=== PATIENT | male | born 2000 | race African-American/Black ===

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

== ENCOUNTER 2018-02-20 10:36 | Emergency (ER) | payer MEDICAID ==
[~2018-02-20] VITALS: Ht 182.9 cm; Wt 68.0 kg
[2018-02-20 10:41] VITALS: BP 107/56
== END 2018-02-20 12:05 | disposition left against medical advice (07) ==
LOC: ER 10:36 → EDBD 10:36 → ER 12:05
DX: G40.909 Epilepsy, unspecified, not intractable, without status epilepticus (principal); R42 Dizziness and giddiness; F17.210 Nicotine dependence, cigarettes, uncomplicated

== ENCOUNTER 2018-07-22 10:32 | Emergency (ER) | payer MEDICAID ==
[~2018-07-22] VITALS: Ht 177.8 cm; Wt 65.8 kg
[2018-07-22] MEDS ORDERED: LORazepam 2MG/ML-1ML VIAL ONE (10:36)
[2018-07-22] MEDS ORDERED: LORazepam 2MG/ML-1ML VIAL IV ONE (10:45)
[2018-07-22] MEDS ORDERED: SODIUM CHLORIDE 0.9% 1,000 ML IV ONE (10:57)
[2018-07-22] MEDS ORDERED: LEVETIRACETAM INJ 1,000 MG in D5W 5% 100 ML IV ONE (11:00)
[2018-07-22 11:03] LABS: Basophils # (auto) 0 uL; Basophils % (auto) 0.6 % (0.0-2.0); Eosinophils # (auto) 0.1 uL; Eosinophils % (auto) 1.1 % (0.0-7.0); Hematocrit 48.2 % (41.0-53.0); Hemoglobin 15.4 g/dL (13.5-17.5); Lymphocytes % (auto) 37.4 % (10.0-50.0); Mean Corpuscular Hemoglobin 28.4 pg (28.0-32.0); Mean Corpuscular Volume 88.9 fL (80.0-100.0); Monocytes # (auto) 0.7 uL; Neutrophils # (auto) 4.2 uL; Neutrophils % (auto) 51.9 % (37.0-80.0); Platelet Count (auto) 199 10^3/uL (140-450); Red Blood Cells 5.43 10^6/uL (4.5-5.90); Red Cell Distribution Width 13.9 % (11.8-14.3)
[2018-07-22 11:13] LABS: Urine Bacteria NONE SEEN /hpf (None Seen); Urine Blood TRACE /uL (Negative); Urine Mucus FEW (None Seen); Urine Specific Gravity 1.018 (1.001-1.035); Urine WBC <1 /hpf (0 - 3)
[2018-07-22 11:31] LABS: Alcohol, Urine < 3.0 mg/dL (0-5); Amphetamine Screen, Urine POSITIVE (NEGATIVE); Barbiturate Scree,Urine NEGATIVE (NEGATIVE); Benzodiazephine Screen, Urine POSITIVE (NEGATIVE); Cannabinoid Screen, Urine POSITIVE (NEGATIVE); Cocaine Screen, Urine NEGATIVE (NEGATIVE); Opiate Scree,Urine NEGATIVE (NEGATIVE); Phencyclidine Screen, Urine NEGATIVE (NEGATIVE)
[2018-07-22 11:35] LABS: Albumin 4.4 g/dL (3.4-5.0); BUN/Creatinine Ratio 7.1; Bilirubin, Total 0.2 mg/dL (0.2-1.0); Calcium 8.5 mg/dL (8.5-10.1); Total Protein 8.1 g/dL (6.4-8.2)
[2018-07-22 11:37] LABS: Potassium 4.3 mmol/L (3.5-5.1)
[2018-07-22] MEDS ORDERED: KETOROLAC TROMETH 30 MG/ML 1ML VIAL IV ONE (17:45)
[2018-07-22 23:50] VITALS: BP 137/84
== END 2018-07-22 22:52 | disposition home or self-care (01) ==
LOC: EDBD 10:32 → ER 10:32
DX: G40.909 Epilepsy, unspecified, not intractable, without status epilepticus (principal); F15.10 Other stimulant abuse, uncomplicated; F12.10 Cannabis abuse, uncomplicated; J32.9 Chronic sinusitis, unspecified; F17.210 Nicotine dependence, cigarettes, uncomplicated
CPT/HCPCS: 36415; 51702; 70450; 71045; 80053; 80185; 80307; 81001; 82962; 83735; 84443; 85025; 93005; 94761; 96374; 96375; 99285; J1885; J1953; J2060; J7030; J7060

== ENCOUNTER 2018-07-23 06:46 | Inpatient (IN) | payer MEDICAID, OTHER ==
[~2018-07-23] VITALS: Ht 167.6 cm; Wt 67.3 kg
[2018-07-23] MEDS ORDERED: SODIUM CHLORIDE 0.9% 1,000 ML IVB ONE (07:16)
[2018-07-23] MEDS ORDERED: LORazepam 2MG/ML-1ML VIAL IV ONE ×2 (07:30→08:15)
[2018-07-23] MEDS ORDERED: LEVETIRACETAM INJ 1,000 MG in D5W 5% 100 ML IV ONE (08:15)
[2018-07-23] MEDS ORDERED: PHENYTOIN IV DILANTIN 1,000 MG in SODIUM CHL 0.9% 250 ML IV ONE (08:15)
[2018-07-23 10:29] LABS: Alcohol, Urine < 3.0 mg/dL (0-5); Amphetamine Screen, Urine NEGATIVE (NEGATIVE); Barbiturate Scree,Urine NEGATIVE (NEGATIVE); Benzodiazephine Screen, Urine POSITIVE (NEGATIVE); Cannabinoid Screen, Urine POSITIVE (NEGATIVE); Cocaine Screen, Urine NEGATIVE (NEGATIVE); Opiate Scree,Urine NEGATIVE (NEGATIVE); Phencyclidine Screen, Urine NEGATIVE (NEGATIVE)
[2018-07-23] MEDS ORDERED: HALOPERIDOL LACTATE 5 MG/ML INJ VIAL ONE (13:03)
[2018-07-23] MEDS ORDERED: HALOPERIDOL LACTATE 5 MG/ML INJ VIAL IM ONE ×2 (13:15→23:45)
[2018-07-23] MEDS ORDERED: NITROGLYCERIN 0.4 MG SL TAB SL PRN (14:00)
[2018-07-23] MEDS ORDERED: MORPHINE SULF INJ 2 MG/ML SYRINGE 1ML IV PRN ×2 (14:00)
[2018-07-23] MEDS ORDERED: DEXTROSE (50%) 50ML SYRG IV PRN (14:00)
[2018-07-23] MEDS ORDERED: LORazepam 2MG/ML-1ML VIAL IV PRN (14:00)
[2018-07-23] MEDS ORDERED: ONDANSETRON HCL 4 MG/2 ML VIAL IV PRN (14:00)
[2018-07-23 14:16] LABS: Basophils # (auto) 0 uL; Basophils % (auto) 0.2 % (0.0-2.0); Eosinophils # (auto) 0 uL; Hematocrit 45.6 % (41.0-53.0); Lymphocytes # (auto) 1.8 uL; Lymphocytes % (auto) 12.5 % (10.0-50.0); Mean Corpuscular Volume 85.1 fL (80.0-100.0); Monocytes # (auto) 1.2 uL; Monocytes % (auto) 8.6 % (0.0-12.0); Neutrophils # (auto) 11.1 uL; Neutrophils % (auto) 78.7 % (37.0-80.0); Platelet Count (auto) 184 10^3/uL (140-450); Red Blood Cells 5.36 10^6/uL (4.5-5.90); Red Cell Distribution Width 13.5 % (11.8-14.3); White Blood Cell 14.2 10^3/uL (4.4-10.8)
[2018-07-23] MEDS: SODIUM CHLORIDE 0.9% 1,000 ML IV SCH ×2 (14:20→22:14)
[2018-07-23 14:31] LABS: Albumin 3.8 g/dL (3.4-5.0); BUN/Creatinine Ratio 6.7; Calcium 8.3 mg/dL (8.5-10.1); Potassium 3.7 mmol/L (3.5-5.1)
[2018-07-23 14:34] LABS: Bilirubin, Total 0.4 mg/dL (0.2-1.0); Total Protein 7.2 g/dL (6.4-8.2)
[2018-07-23] MEDS: ACCU-CHEK COMFORT CURVE STRIP VI SCH (18:42)
[2018-07-23] MEDS: InsuLIN REG 1unit/0.01ml Soln (100units/ml) SC SCH (18:42)
[2018-07-23] MEDS: SODIUM CHL 0.9% IV SCH (22:00)
[2018-07-23] MEDS: PHENYTOIN DILANTIN IV SCH (22:00)
[2018-07-23] MEDS: LEVETIRACETAM INJ 500 MG in D5W 5% 100 ML IV SCH (22:15)
[2018-07-23] MEDS ORDERED: LEVETIRACETAM 500 MG/5ML INJ IV ONE (23:32)
[2018-07-24] MEDS ORDERED: PHENYTOIN SODIUM 50 MG/ML 5ML INJ VIAL IV ONE (00:42)
[2018-07-24] MEDS: LORazepam 2MG/ML-1ML VIAL IV PRN ×2 (06:02→23:27)
[2018-07-24] MEDS: ACCU-CHEK COMFORT CURVE STRIP VI SCH ×4 (07:23→18:07)
[2018-07-24] MEDS: InsuLIN REG 1unit/0.01ml Soln (100units/ml) SC SCH ×4 (07:23→18:00)
[2018-07-24] MEDS: SODIUM CHLORIDE 0.9% 1,000 ML IV SCH ×2 (07:58→18:08)
[2018-07-24 08:30] VITALS: BP 148/75
[2018-07-24] MEDS: PHENYTOIN DILANTIN IV SCH (10:29)
[2018-07-24] MEDS: SODIUM CHL 0.9% IV SCH (10:29)
[2018-07-24 10:33] LABS: Basophils # (auto) 0 uL; Basophils % (auto) 0.4 % (0.0-2.0); Eosinophils # (auto) 0 uL; Eosinophils % (auto) 0.1 % (0.0-7.0); Hematocrit 46.9 % (41.0-53.0); Hemoglobin 15.4 g/dL (13.5-17.5); Lymphocytes # (auto) 1.7 uL; Lymphocytes % (auto) 16.8 % (10.0-50.0); Mean Corpuscular Hemoglobin 27.9 pg (28.0-32.0); Mean Corpuscular Hgb Conc. 32.8 g/dL (32.0-36.0); Mean Corpuscular Volume 85.2 fL (80.0-100.0); Monocytes % (auto) 10.3 % (0.0-12.0); Neutrophils # (auto) 7.4 uL; Neutrophils % (auto) 72.4 % (37.0-80.0); Nucleated Red Blood Cells % 0.1 %; Platelet Count (auto) 174 10^3/uL (140-450); Red Blood Cells 5.51 10^6/uL (4.5-5.90); Red Cell Distribution Width 13.7 % (11.8-14.3); White Blood Cell 10.2 10^3/uL (4.4-10.8)
[2018-07-24] MEDS: LEVETIRACETAM INJ 500 MG in D5W 5% 100 ML IV SCH (10:52)
[2018-07-24 11:02] LABS: Albumin 3.8 g/dL (3.4-5.0); BUN/Creatinine Ratio 8.2; Bilirubin, Total 0.4 mg/dL (0.2-1.0); Potassium 3.7 mmol/L (3.5-5.1); Total Protein 7.4 g/dL (6.4-8.2)
[2018-07-24 11:57] VITALS: BP 141/74
[2018-07-24] MEDS ORDERED: LEVETIRACETAM INJ 1,000 MG in D5W 5% 100 ML IV ONE (12:30)
[2018-07-24] MEDS ORDERED: LABETALOL HCL 5 MG/ML ML 20ML VIAL IV PRN (12:45)
[2018-07-24 15:50] VITALS: BP 122/75
[2018-07-24 19:50] VITALS: BP 112/56
[2018-07-24] MEDS: LEVETIRACETAM INJ 750 MG in D5W 5% 100 ML IV SCH (22:10)
[2018-07-25] MEDS: LORazepam 2MG/ML-1ML VIAL IV PRN (02:31)
[2018-07-25 04:00] VITALS: BP 116/55
[2018-07-25] MEDS: SODIUM CHLORIDE 0.9% 1,000 ML IV SCH (05:16)
[2018-07-25 05:37] LABS: Basophils # (auto) 0 uL; Basophils % (auto) 0.5 % (0.0-2.0); Eosinophils # (auto) 0.2 uL; Eosinophils % (auto) 2.2 % (0.0-7.0); Hematocrit 45.6 % (41.0-53.0); Hemoglobin 15.3 g/dL (13.5-17.5); Lymphocytes # (auto) 2.2 uL; Lymphocytes % (auto) 26.6 % (10.0-50.0); Mean Corpuscular Hemoglobin 28.8 pg (28.0-32.0); Mean Corpuscular Hgb Conc. 33.6 g/dL (32.0-36.0); Mean Corpuscular Volume 85.7 fL (80.0-100.0); Monocytes # (auto) 0.9 uL; Neutrophils % (auto) 59.7 % (37.0-80.0); Nucleated Red Blood Cells % 0.1 %; Platelet Count (auto) 165 10^3/uL (140-450); Red Blood Cells 5.33 10^6/uL (4.5-5.90); Red Cell Distribution Width 13.4 % (11.8-14.3); White Blood Cell 8.4 10^3/uL (4.4-10.8)
[2018-07-25 05:48] LABS: Albumin 3.8 g/dL (3.4-5.0); BUN/Creatinine Ratio 7.4; Bilirubin, Total 0.6 mg/dL (0.2-1.0); Calcium 8.8 mg/dL (8.5-10.1); Potassium 3.8 mmol/L (3.5-5.1); Total Protein 7.5 g/dL (6.4-8.2)
[2018-07-25] MEDS: ACCU-CHEK COMFORT CURVE STRIP VI SCH ×4 (06:00→18:19)
[2018-07-25] MEDS: InsuLIN REG 1unit/0.01ml Soln (100units/ml) SC SCH ×4 (06:00→18:00)
[2018-07-25 08:00] VITALS: BP 135/63
[2018-07-25] MEDS: LEVETIRACETAM INJ 750 MG in D5W 5% 100 ML IV SCH ×2 (11:03→22:54)
[2018-07-25 11:52] VITALS: BP 137/69
[2018-07-25 14:00] VITALS: BP 138/70
[2018-07-25] MEDS: THIAMINE INJ 100 MG, MULTIPLE VITAMIN 10 ML, FOLIC ACID 1 MG, MAGNESIUM SULF SDV 50% 8 ... IV SCH ×5 (14:46)
[2018-07-25 16:00] VITALS: BP 138/70
[2018-07-25 20:00] VITALS: BP 138/47
[2018-07-26] VITALS: BP 120/56
[2018-07-26] MEDS: InsuLIN REG 1unit/0.01ml Soln (100units/ml) SC SCH
[2018-07-26] MEDS: ACCU-CHEK COMFORT CURVE STRIP VI SCH
[2018-07-26 04:00] VITALS: BP 119/58
[2018-07-26 05:04] LABS: Basophils # (auto) 0 uL; Basophils % (auto) 0.8 % (0.0-2.0); Eosinophils # (auto) 0.2 uL; Eosinophils % (auto) 4.2 % (0.0-7.0); Hemoglobin 15.7 g/dL (13.5-17.5); Lymphocytes # (auto) 2.1 uL; Lymphocytes % (auto) 35.4 % (10.0-50.0); Mean Corpuscular Hemoglobin 28.6 pg (28.0-32.0); Mean Corpuscular Hgb Conc. 33.4 g/dL (32.0-36.0); Mean Corpuscular Volume 85.4 fL (80.0-100.0); Monocytes # (auto) 0.5 uL; Monocytes % (auto) 9.2 % (0.0-12.0); Neutrophils % (auto) 50.4 % (37.0-80.0); Nucleated Red Blood Cells % 0.3 %; Platelet Count (auto) 166 10^3/uL (140-450); Red Cell Distribution Width 13.3 % (11.8-14.3); White Blood Cell 5.9 10^3/uL (4.4-10.8)
[2018-07-26 05:21] LABS: Albumin 3.5 g/dL (3.4-5.0); BUN/Creatinine Ratio 7.1; Calcium 8.9 mg/dL (8.5-10.1); Potassium 3.9 mmol/L (3.5-5.1)
[2018-07-26 05:30] LABS: Bilirubin, Total 0.2 mg/dL (0.2-1.0); Total Protein 7.3 g/dL (6.4-8.2)
[2018-07-26 08:00] VITALS: BP 115/57
[2018-07-26] MEDS: LEVETIRACETAM INJ 750 MG in D5W 5% 100 ML IV SCH (10:19)
[2018-07-26 11:32] VITALS: BP 128/69
[2018-07-26] MEDS: THIAMINE INJ 100 MG, MULTIPLE VITAMIN 10 ML, FOLIC ACID 1 MG, MAGNESIUM SULF SDV 50% 8 ... IV SCH ×5 (11:33)
[2018-07-26] MEDS ORDERED: THIAMINE INJ 100 MG, MULTIPLE VITAMIN 10 ML, FOLIC ACID 1 MG, MAGNESIUM SULF SDV 50% 8 ... IV SCH ×5 (12:00)
[2018-07-26 15:40] VITALS: BP 122/64
[2018-07-26 15:44] VITALS: BP 122/64
== END 2018-07-26 18:16 | disposition home or self-care (01) | DRG 53 ==
LOC: ER 06:46 → EDBD 06:46 → TELE 06:47 → DOU IN ICU 07-24 08:10
PROVIDERS: ADMIT Internal Medicine; ATTEND Internal Medicine
DX: G40.219 Localization-related (focal) (partial) symptomatic epilepsy and epileptic syndromes with complex partial seizures, intractable, without status epilepticus (principal); G92 Toxic encephalopathy; F17.210 Nicotine dependence, cigarettes, uncomplicated; M10.9 Gout, unspecified; F29 Unspecified psychosis not due to a substance or known physiological condition; I10 Essential (primary) hypertension; J32.0 Chronic maxillary sinusitis; F12.20 Cannabis dependence, uncomplicated; F15.20 Other stimulant dependence, uncomplicated; F19.20 Other psychoactive substance dependence, uncomplicated; Z82.49 Family history of ischemic heart disease and other diseases of the circulatory system; Z91.19 Patient's noncompliance with other medical treatment and regimen
CPT/HCPCS: 36415; 80053; 80185; 80307; 82962; 83036; 84443; 85025; 87081; 95819; 96361; 96365; 96366; A4565; A6257; J7060

== ENCOUNTER 2018-08-17 10:47 | Inpatient (IN) | payer MEDICAID ==
[~2018-08-17] VITALS: Ht 167.6 cm; Wt 79.8 kg
[2018-08-17] MEDS ORDERED: LEVETIRACETAM INJ 1,000 MG in D5W 5% 100 ML IV ONE (11:00)
[2018-08-17 11:38] LABS: Basophils # (auto) 0.1 uL; Basophils % (auto) 1.2 % (0.0-2.0); Eosinophils # (auto) 0.1 uL; Eosinophils % (auto) 0.8 % (0.0-7.0); Hematocrit 45.7 % (41.0-53.0); Hemoglobin 14.7 g/dL (13.5-17.5); Lymphocytes # (auto) 3.5 uL; Lymphocytes % (auto) 33.5 % (10.0-50.0); Mean Corpuscular Hemoglobin 28.3 pg (28.0-32.0); Mean Corpuscular Hgb Conc. 32.2 g/dL (32.0-36.0); Monocytes # (auto) 0.5 uL; Monocytes % (auto) 5.1 % (0.0-12.0); Neutrophils # (auto) 6.1 uL; Neutrophils % (auto) 59.4 % (37.0-80.0); Nucleated Red Blood Cells % 0.1 %; Platelet Count (auto) 212 10^3/uL (140-450); Red Blood Cells 5.19 10^6/uL (4.5-5.90); Red Cell Distribution Width 13.8 % (11.8-14.3); White Blood Cell 10.3 10^3/uL (4.4-10.8)
[2018-08-17 11:54] LABS: Alanine Aminotransferase 22 U/L (16-61); Albumin 4.2 g/dL (3.4-5.0); Alkaline Phosphatase 86 U/L (45-117); Anion Gap 11 (5-15); Aspartate Aminotransferase 18 U/L (15-37); BUN/Creatinine Ratio 10.4; Bilirubin, Total 0.3 mg/dL (0.2-1.0); Blood Alcohol < 3.0 mg/dL (0-5); Blood Urea Nitrogen 14 mg/dL (7-18); Calcium 8.5 mg/dL (8.5-10.1); Carbon Dioxide 22 mmol/L (21-32); Chloride 104 mmol/L (98-107); GFR African American 88 mL/min; GFR Non-African American 72 mL/min; Glucose 165 mg/dL (74-106); Potassium 3.7 mmol/L (3.5-5.1); Sodium 137 mmol/L (136-145); Total Protein 7.9 g/dL (6.4-8.2)
[2018-08-17] MEDS ORDERED: LORazepam 2MG/ML-1ML VIAL ONE (11:57)
[2018-08-17 12:00] LABS: Phenytoin (Dilantin) < 0.4 ug/mL (10-20); Valproic Acid (Depakene) < 3.0 ug/mL (50-100)
[2018-08-17] MEDS ORDERED: LORazepam 2MG/ML-1ML VIAL IV ONE ×3 (12:15→12:30)
[2018-08-17] MEDS ORDERED: PHENYTOIN SODIUM 50 MG/ML 5ML INJ VIAL IV ONE (12:26)
[2018-08-17] MEDS ORDERED: PHENYTOIN IV DILANTIN 1,000 MG in SODIUM CHL 0.9% 250 ML IV ONE (12:30)
[2018-08-17] MEDS ORDERED: SUCCINYLCHOLINE CHLORIDE 20 MG/ML 10ML VIAL IV ONE ×2 (12:40→12:45)
[2018-08-17] MEDS ORDERED: ETOMIDATE (2MG/ML) 20ML VIAL IV ONE ×2 (12:40→12:45)
[2018-08-17] MEDS ORDERED: MIDAZOLAM DRIP 50 mg/50mL 50 ML IV SCH (12:44)
[2018-08-17] MEDS ORDERED: MIDAZOLAM DRIP 50 mg/50mL 50 ML IV ONE (12:44)
[2018-08-17] MEDS: MIDAZOLAM DRIP 50 mg/50mL 50 ML IV SCH (12:47)
[2018-08-17] MEDS: PROPOFOL 100 ML IV SCH (13:00)
[2018-08-17] MEDS ORDERED: PROPOFOL 100 ML IV ONE (13:05)
[2018-08-17 13:32] LABS: Alcohol, Urine < 3.0 mg/dL (0-5); Amphetamine Screen, Urine NEGATIVE (NEGATIVE); Barbiturate Scree,Urine NEGATIVE (NEGATIVE); Benzodiazephine Screen, Urine POSITIVE (NEGATIVE); Cannabinoid Screen, Urine POSITIVE (NEGATIVE); Cocaine Screen, Urine NEGATIVE (NEGATIVE); Opiate Scree,Urine NEGATIVE (NEGATIVE); Phencyclidine Screen, Urine NEGATIVE (NEGATIVE)
[2018-08-17] MEDS: NOREPINEPHRINE 8 MG/250ML KIT 250 ML IV SCH (14:15)
[2018-08-17] MEDS: SODIUM CHLORIDE 0.9% 1,000 ML IV SCH ×2 (15:19→23:06)
[2018-08-17] MEDS ORDERED: ONDANSETRON HCL 4 MG/2 ML VIAL IV PRN (15:30)
[2018-08-17] MEDS ORDERED: MORPHINE SULFATE 4 MG/ML SYR/VIAL IV PRN ×3 (15:30)
[2018-08-17] MEDS ORDERED: NITROGLYCERIN 0.4 MG SL TAB SL PRN (15:30)
[2018-08-17 15:38] VITALS: BP 109/50
[2018-08-17 17:44] VITALS: BP 103/48
[2018-08-17 18:14] VITALS: BP 111/57
[2018-08-17 20:23] VITALS: BP 107/48
[2018-08-17] MEDS: PHENYTOIN SODIUM 50 MG/ML 2ML VIAL IV SCH (21:45)
[2018-08-17] MEDS: LEVETIRACETAM INJ 500 MG in D5W 5% 100 ML IV SCH (21:48)
[2018-08-17 22:15] VITALS: BP 109/56
[2018-08-18] VITALS (34 sets, daily range): BP systolic 110–143; BP diastolic 47–83
[2018-08-18] MEDS: PHENYTOIN SODIUM 50 MG/ML 2ML VIAL IV SCH ×3 (05:40→22:26)
[2018-08-18] MEDS: SODIUM CHLORIDE 0.9% 1,000 ML IV SCH ×3 (06:49→23:36)
[2018-08-18 07:08] LABS: Basophils # (auto) 0 uL; Basophils % (auto) 0.3 % (0.0-2.0); Eosinophils # (auto) 0.2 uL; Eosinophils % (auto) 2.5 % (0.0-7.0); Hematocrit 38.7 % (41.0-53.0); Lymphocytes % (auto) 15.9 % (10.0-50.0); Mean Corpuscular Hemoglobin 28.8 pg (28.0-32.0); Mean Corpuscular Hgb Conc. 33.5 g/dL (32.0-36.0); Mean Corpuscular Volume 85.9 fL (80.0-100.0); Monocytes # (auto) 0.8 uL; Monocytes % (auto) 12.2 % (0.0-12.0); Neutrophils # (auto) 4.5 uL; Neutrophils % (auto) 69.1 % (37.0-80.0); Nucleated Red Blood Cells % 0.1 %; Platelet Count (auto) 147 10^3/uL (140-450); Red Cell Distribution Width 13.8 % (11.8-14.3); White Blood Cell 6.5 10^3/uL (4.4-10.8)
[2018-08-18 07:27] LABS: Potassium 3.9 mmol/L (3.5-5.1)
[2018-08-18 07:34] LABS: Albumin 3.2 g/dL (3.4-5.0); BUN/Creatinine Ratio 8.4; Calcium 8.4 mg/dL (8.5-10.1)
[2018-08-18 07:44] LABS: Bilirubin, Total 0.4 mg/dL (0.2-1.0); Total Protein 5.9 g/dL (6.4-8.2)
[2018-08-18] MEDS: LEVETIRACETAM INJ 500 MG in D5W 5% 100 ML IV SCH ×2 (10:00→22:25)
[2018-08-18] MEDS: PANTOPRAZOLE 40 MG/10 ML VIAL IV SCH (10:23)
[2018-08-18] MEDS: PROPOFOL 100 ML IV SCH ×2 (11:04→19:49)
[2018-08-18] MEDS: MIDAZOLAM DRIP 50 mg/50mL 50 ML IV SCH ×2 (12:49→23:35)
[2018-08-18] MEDS: NOREPINEPHRINE 8 MG/250ML KIT 250 ML IV SCH (14:15)
[2018-08-18] MEDS: LORazepam 2MG/ML-1ML VIAL IV PRN ×2 (20:17→22:51)
[2018-08-18] MEDS ORDERED: ACETAMINOPHEN 650 MG RECT SUPP PR PRN (23:15)
[2018-08-18] MEDS ORDERED: LORazepam 2MG/ML-1ML VIAL IV PRN (23:15)
[2018-08-18] MEDS ORDERED: LEVETIRACETAM INJ 1,000 MG in D5W 5% 100 ML IV ONE (23:15)
[2018-08-19] VITALS (100 sets, daily range): BP systolic 14–182; BP diastolic 49–86
[2018-08-19] MEDS: PROPOFOL 100 ML IV SCH ×4 (00:10→17:52)
[2018-08-19] MEDS: MIDAZOLAM DRIP 50 mg/50mL 50 ML IV SCH ×4 (03:50→17:52)
[2018-08-19 04:12] LABS: Basophils # (auto) 0 uL; Basophils % (auto) 0.2 % (0.0-2.0); Eosinophils # (auto) 0.3 uL; Eosinophils % (auto) 1.6 % (0.0-7.0); Hemoglobin 12.9 g/dL (13.5-17.5); Lymphocytes # (auto) 1.4 uL; Lymphocytes % (auto) 9.3 % (10.0-50.0); Mean Corpuscular Hemoglobin 27.9 pg (28.0-32.0); Mean Corpuscular Hgb Conc. 32.3 g/dL (32.0-36.0); Mean Corpuscular Volume 86.3 fL (80.0-100.0); Monocytes # (auto) 1.8 uL; Monocytes % (auto) 11.5 % (0.0-12.0); Neutrophils % (auto) 77.4 % (37.0-80.0); Nucleated Red Blood Cells % 0.1 %; Platelet Count (auto) 147 10^3/uL (140-450); Red Blood Cells 4.63 10^6/uL (4.5-5.90); Red Cell Distribution Width 13.9 % (11.8-14.3); White Blood Cell 15.6 10^3/uL (4.4-10.8)
[2018-08-19 04:27] LABS: Albumin 3.3 g/dL (3.4-5.0); BUN/Creatinine Ratio 6.4; Bilirubin, Total 0.5 mg/dL (0.2-1.0); Calcium 8.5 mg/dL (8.5-10.1); Potassium 3.5 mmol/L (3.5-5.1); Total Protein 6.5 g/dL (6.4-8.2)
[2018-08-19] MEDS: PHENYTOIN SODIUM 50 MG/ML 2ML VIAL IV SCH ×3 (05:31→21:55)
[2018-08-19] MEDS: SODIUM CHLORIDE 0.9% 1,000 ML IV SCH ×2 (07:12→08:33)
[2018-08-19] MEDS: LEVETIRACETAM INJ 500 MG in D5W 5% 100 ML IV SCH ×2 (10:20→21:56)
[2018-08-19] MEDS: PANTOPRAZOLE 40 MG/10 ML VIAL IV SCH (10:20)
[2018-08-19] MEDS: THIAMINE INJ 100 MG, MULTIPLE VITAMIN 10 ML, FOLIC ACID 1 MG, MAGNESIUM SULF SDV 50% 8 ... IV SCH ×5 (11:39)
[2018-08-19] MEDS: NOREPINEPHRINE 8 MG/250ML KIT 250 ML IV SCH (14:15)
[2018-08-20] VITALS (103 sets, daily range): BP systolic 102–176; BP diastolic 43–91
[2018-08-20] MEDS: PROPOFOL 100 ML IV SCH ×4 (00:14→16:57)
[2018-08-20] MEDS: MIDAZOLAM DRIP 50 mg/50mL 50 ML IV SCH ×5 (00:32→22:20)
[2018-08-20] MEDS: SODIUM CHLORIDE 0.9% 1,000 ML IV SCH ×4 (02:18→23:19)
[2018-08-20 04:07] LABS: Basophils # (auto) 0 uL; Basophils % (auto) 0.3 % (0.0-2.0); Eosinophils # (auto) 0.4 uL; Eosinophils % (auto) 3.4 % (0.0-7.0); Hematocrit 38.8 % (41.0-53.0); Hemoglobin 12.9 g/dL (13.5-17.5); Lymphocytes # (auto) 1.6 uL; Lymphocytes % (auto) 14.7 % (10.0-50.0); Mean Corpuscular Hemoglobin 28.4 pg (28.0-32.0); Mean Corpuscular Hgb Conc. 33.2 g/dL (32.0-36.0); Mean Corpuscular Volume 85.4 fL (80.0-100.0); Monocytes # (auto) 1.1 uL; Monocytes % (auto) 10.8 % (0.0-12.0); Neutrophils # (auto) 7.6 uL; Neutrophils % (auto) 70.8 % (37.0-80.0); Nucleated Red Blood Cells % 0.1 %; Platelet Count (auto) 134 10^3/uL (140-450); Red Blood Cells 4.54 10^6/uL (4.5-5.90); Red Cell Distribution Width 13.8 % (11.8-14.3); White Blood Cell 10.7 10^3/uL (4.4-10.8)
[2018-08-20 04:29] LABS: BUN/Creatinine Ratio 7.9; Bilirubin, Total 0.4 mg/dL (0.2-1.0); Calcium 8.3 mg/dL (8.5-10.1); Potassium 3.3 mmol/L (3.5-5.1); Total Protein 6.2 g/dL (6.4-8.2)
[2018-08-20] MEDS ORDERED: POTASSIUM EFFERVESENT TAB 25 MEQ GT ONE (06:00)
[2018-08-20] MEDS: PHENYTOIN SODIUM 50 MG/ML 2ML VIAL IV SCH ×3 (06:21→21:36)
[2018-08-20] MEDS: LEVETIRACETAM INJ 500 MG in D5W 5% 100 ML IV SCH ×2 (08:59→21:36)
[2018-08-20] MEDS: PANTOPRAZOLE 40 MG/10 ML VIAL IV SCH (08:59)
[2018-08-20] MEDS ORDERED: POTASSIUM CHL 20MEQ/100ML 100 ML IV SCH (09:15)
[2018-08-20] MEDS: ENOXAPARIN SOD 40 MG/0.4 ML SYRINGE SC SCH (11:21)
[2018-08-20] MEDS ORDERED: cefTRIAXone 1GM/10ml IVPUSH 10 ML IV ONE (12:00)
[2018-08-20] MEDS: NOREPINEPHRINE 8 MG/250ML KIT 250 ML IV SCH (13:52)
[2018-08-20] MEDS: THIAMINE INJ 100 MG, MULTIPLE VITAMIN 10 ML, FOLIC ACID 1 MG, MAGNESIUM SULF SDV 50% 8 ... IV SCH ×5 (16:58)
[2018-08-20] MEDS: LORazepam 2MG/ML-1ML VIAL IV PRN (19:46)
[2018-08-21] VITALS (66 sets, daily range): BP systolic 107–162; BP diastolic 39–92
[2018-08-21 03:57] LABS: Albumin 2.5 g/dL (3.4-5.0); BUN/Creatinine Ratio 5.3; Calcium 7.8 mg/dL (8.5-10.1); Potassium 3.3 mmol/L (3.5-5.1)
[2018-08-21 03:59] LABS: Bilirubin, Total 0.3 mg/dL (0.2-1.0); Total Protein 5.6 g/dL (6.4-8.2)
[2018-08-21] MEDS: PHENYTOIN SODIUM 50 MG/ML 2ML VIAL IV SCH (05:45)
[2018-08-21] MEDS: SODIUM CHLORIDE 0.9% 1,000 ML IV SCH ×2 (08:45→15:19)
[2018-08-21] MEDS: ENOXAPARIN SOD 40 MG/0.4 ML SYRINGE SC SCH (10:00)
[2018-08-21] MEDS: POTASSIUM CHL 20MEQ/100ML 100 ML IV SCH ×2 (11:46→15:43)
[2018-08-21] MEDS: cefTRIAXone 1GM/10ml IVPUSH 10 ML IV SCH (11:46)
[2018-08-21] MEDS: LEVETIRACETAM INJ 500 MG in D5W 5% 100 ML IV SCH (11:47)
[2018-08-21] MEDS: PANTOPRAZOLE 40 MG/10 ML VIAL IV SCH (11:47)
[2018-08-21] MEDS: NOREPINEPHRINE 8 MG/250ML KIT 250 ML IV SCH (14:15)
[2018-08-21] MEDS: THIAMINE INJ 100 MG, MULTIPLE VITAMIN 10 ML, FOLIC ACID 1 MG, MAGNESIUM SULF SDV 50% 8 ... IV SCH ×5 (17:00)
[2018-08-21] MEDS ORDERED: HALOPERIDOL LACTATE 5 MG/ML INJ VIAL IM PRN (17:45)
[2018-08-21] MEDS ORDERED: PHENYTOIN SODIUM 100 MG CAP PO SCH (22:00)
[2018-08-21] MEDS ORDERED: LEVETIRACETAM 500 MG TAB PO SCH (22:00)
[2018-08-21] MEDS: LORazepam 2MG/ML-1ML VIAL IV PRN (22:24)
[2018-08-22] MEDS ORDERED: LEVETIRACETAM 500 MG/5ML ORAL SOLN UD PO ONE (02:00)
[2018-08-22 04:09] LABS: BUN/Creatinine Ratio 5.6; Calcium 8.8 mg/dL (8.5-10.1)
[2018-08-22] MEDS: cefTRIAXone 1GM/10ml IVPUSH 10 ML IV SCH (09:00)
[2018-08-22] MEDS: PANTOPRAZOLE 40 MG/10 ML VIAL IV SCH (10:00)
[2018-08-22] MEDS ORDERED: LEVETIRACETAM 500 MG/5ML ORAL SOLN UD ONE (10:24)
[2018-08-22 10:30] VITALS: BP 145/83
[2018-08-22] MEDS ORDERED: LEVETIRACETAM 500 MG/5ML ORAL SOLN UD PO SCH (10:45)
[2018-08-22] MEDS ORDERED: POTASSIUM CHL 20MEQ/100ML 100 ML IV ONE ×3 (13:05→13:15)
[2018-08-22] MEDS ORDERED: POTASSIUM CHL 20 Meq TABLET PO ONE (13:15)
[2018-08-22] MEDS ORDERED: POTASSIUM EFFERVESENT TAB 25 MEQ PO ONE ×2 (13:15→14:00)
== END 2018-08-22 17:30 | disposition home or self-care (01) | DRG 53 ==
LOC: ER 10:47 → EDBD 10:47 → OVERFLOW 10:48 → ICU WEST 08-18 17:32 → TELE-WESTW 08-22 13:45
PROVIDERS: ADMIT Internal Medicine; ATTEND Internal Medicine
PROC: 5A1955Z Respiratory Ventilation, Greater than 96 Consecutive Hours (ICD-10-PCS; principal; 2018-08-17)
PROC: 0BH17EZ Insertion of Endotracheal Airway into Trachea, Via Natural or Artificial Opening (ICD-10-PCS; 2018-08-17)
PROC: 4A00X4Z Measurement of Central Nervous Electrical Activity, External Approach (ICD-10-PCS; 2018-08-19)
DX: G40.201 Localization-related (focal) (partial) symptomatic epilepsy and epileptic syndromes with complex partial seizures, not intractable, with status epilepticus (principal); J96.90 Respiratory failure, unspecified, unspecified whether with hypoxia or hypercapnia; J69.0 Pneumonitis due to inhalation of food and vomit; E87.2 Acidosis; F12.10 Cannabis abuse, uncomplicated; F20.9 Schizophrenia, unspecified; B96.1 Klebsiella pneumoniae [K. pneumoniae] as the cause of diseases classified elsewhere; F31.9 Bipolar disorder, unspecified; I10 Essential (primary) hypertension; E87.6 Hypokalemia; F17.210 Nicotine dependence, cigarettes, uncomplicated; Z82.0 Family history of epilepsy and other diseases of the nervous system; Z82.49 Family history of ischemic heart disease and other diseases of the circulatory system; Z91.14 Patient's other noncompliance with medication regimen; Z71.51 Drug abuse counseling and surveillance of drug abuser; Z71.6 Tobacco abuse counseling
CPT/HCPCS: 31500; 36415; 36600; 51702; 70450; 71045; 80048; 80053; 80164; 80185; 80307; 80320; 82805; 83735; 85025; 85652; 87040; 87070; 87077; 87081; 87186; 87205; 94002; 94003; 94761; 95819; 96365; 96375; A4565; A6257; C9113; G0378; J0330; J0696; J2250; J2704; J3480; J7060

== ENCOUNTER 2018-12-09 11:32 | Emergency (ER) | payer MEDICAID ==
[~2018-12-09] VITALS: Ht 180.3 cm; Wt 31.8 kg
[~2018-12-09 11:32] MED LIST: LORazepam 2MG/ML-1ML VIAL ONE
[2018-12-09] MEDS ORDERED: ONDANSETRON HCL 4 MG/2 ML VIAL IV ONE (11:45)
[2018-12-09] MEDS ORDERED: LORazepam 2MG/ML-1ML VIAL IV ONE ×2 (11:45→12:15)
[2018-12-09 12:00] LABS: Basophils # (auto) 0 uL; Basophils % (auto) 0.6 % (0.0-2.0); Eosinophils # (auto) 0.1 uL; Eosinophils % (auto) 1.4 % (0.0-7.0); Hematocrit 44.6 % (41.0-53.0); Hemoglobin 14.7 g/dL (13.5-17.5); Lymphocytes # (auto) 1.9 uL; Lymphocytes % (auto) 31.2 % (10.0-50.0); Mean Corpuscular Hemoglobin 28.8 pg (28.0-32.0); Mean Corpuscular Volume 87.1 fL (80.0-100.0); Monocytes # (auto) 0.4 uL; Monocytes % (auto) 7.6 % (0.0-12.0); Neutrophils # (auto) 3.5 uL; Neutrophils % (auto) 59.2 % (37.0-80.0); Nucleated Red Blood Cells % 0.1 %; Platelet Count (auto) 170 10^3/uL (140-450); Red Blood Cells 5.12 10^6/uL (4.5-5.90); Red Cell Distribution Width 13.6 % (11.8-14.3); White Blood Cell 5.9 10^3/uL (4.4-10.8)
[2018-12-09 12:17] LABS: Albumin 3.8 g/dL (3.4-5.0); Anion Gap 4 (5-15); Blood Urea Nitrogen 13 mg/dL (7-18); Calcium 8.2 mg/dL (8.5-10.1); Carbon Dioxide 27 mmol/L (21-32); Chloride 110 mmol/L (98-107); Glucose 116 mg/dL (74-106); Magnesium 2.3 mg/dL (1.6-2.6); Potassium 4.1 mmol/L (3.5-5.1); Sodium 141 mmol/L (136-145)
[2018-12-09 12:23] LABS: Alanine Aminotransferase 23 U/L (16-61); Alkaline Phosphatase 82 U/L (45-117); Aspartate Aminotransferase 31 U/L (15-37); BUN/Creatinine Ratio 11.9; Bilirubin, Total 0.3 mg/dL (0.2-1.0); GFR African American > 60 mL/min; GFR Non-African American > 60 mL/min; Total Protein 7.1 g/dL (6.4-8.2)
[2018-12-09] MEDS ORDERED: LEVETIRACETAM 500 MG/5ML INJ IV ONE (12:43)
[2018-12-09] MEDS ORDERED: LEVETIRACETAM INJ 500 MG in D5W 5% 100 ML IV ONE (12:45)
[2018-12-09 15:54] VITALS: BP 137/56
== END 2018-12-09 18:46 | disposition home or self-care (01) ==
LOC: ER 11:32
DX: G40.909 Epilepsy, unspecified, not intractable, without status epilepticus (principal); F17.210 Nicotine dependence, cigarettes, uncomplicated; F12.90 Cannabis use, unspecified, uncomplicated; Z91.14 Patient's other noncompliance with medication regimen
CPT/HCPCS: 36415; 71045; 80053; 80320; 82542; 83735; 84484; 85025; 93005; 94761; 96365; 96375; 99284; J1953; J2060; J7060

== ENCOUNTER 2018-12-22 00:50 | Emergency (ER) | payer MEDICAID ==
[~2018-12-22] VITALS: Ht 180.3 cm; Wt 81.6 kg
[2018-12-22 01:00] VITALS: BP 127/72
[2018-12-22] MEDS ORDERED: LORazepam 2MG/ML-1ML VIAL IV ONE (02:00)
[2018-12-22 02:11] LABS: Basophils # (auto) 0 uL; Basophils % (auto) 0.8 % (0.0-2.0); Eosinophils # (auto) 0.1 uL; Eosinophils % (auto) 1.1 % (0.0-7.0); Hematocrit 42.9 % (41.0-53.0); Hemoglobin 14.6 g/dL (13.5-17.5); Lymphocytes # (auto) 1.7 uL; Lymphocytes % (auto) 26.7 % (10.0-50.0); Mean Corpuscular Hemoglobin 28.9 pg (28.0-32.0); Mean Corpuscular Hgb Conc. 34.1 g/dL (32.0-36.0); Mean Corpuscular Volume 84.5 fL (80.0-100.0); Monocytes # (auto) 0.7 uL; Monocytes % (auto) 11.9 % (0.0-12.0); Neutrophils # (auto) 3.7 uL; Neutrophils % (auto) 59.5 % (37.0-80.0); Platelet Count (auto) 172 10^3/uL (140-450); Red Blood Cells 5.07 10^6/uL (4.5-5.90); Red Cell Distribution Width 13.6 % (11.8-14.3); White Blood Cell 6.3 10^3/uL (4.4-10.8)
[2018-12-22 02:37] LABS: BUN/Creatinine Ratio 16.2; Potassium 3.7 mmol/L (3.5-5.1)
[2018-12-22 02:40] LABS: Bilirubin, Total 0.3 mg/dL (0.2-1.0); Total Protein 7.3 g/dL (6.4-8.2)
== END 2018-12-22 02:44 | disposition left against medical advice (07) ==
LOC: EDBD 00:50 → ER 00:55
DX: R56.9 Unspecified convulsions (principal); F17.210 Nicotine dependence, cigarettes, uncomplicated; F12.10 Cannabis abuse, uncomplicated
CPT/HCPCS: 36415; 80053; 82542; 85025

== ENCOUNTER 2019-01-03 18:17 | Emergency (ER) | payer MEDICAID ==
[~2019-01-03] VITALS: Ht 182.9 cm; Wt 72.2 kg
[2019-01-03 19:07] LABS: Basophils # (auto) 0 uL; Basophils % (auto) 0.8 % (0.0-2.0); Eosinophils # (auto) 0 uL; Eosinophils % (auto) 0.6 % (0.0-7.0); Hematocrit 44.6 % (41.0-53.0); Hemoglobin 15.2 g/dL (13.5-17.5); Lymphocytes # (auto) 2.7 uL; Lymphocytes % (auto) 49.9 % (10.0-50.0); Mean Corpuscular Hemoglobin 28.8 pg (28.0-32.0); Mean Corpuscular Hgb Conc. 34.1 g/dL (32.0-36.0); Mean Corpuscular Volume 84.4 fL (80.0-100.0); Monocytes # (auto) 0.7 uL; Monocytes % (auto) 12.3 % (0.0-12.0); Neutrophils % (auto) 36.4 % (37.0-80.0); Nucleated Red Blood Cells % 0.1 %; Platelet Count (auto) 164 10^3/uL (140-450); Red Blood Cells 5.29 10^6/uL (4.5-5.90); Red Cell Distribution Width 13.6 % (11.8-14.3); White Blood Cell 5.4 10^3/uL (4.4-10.8)
[2019-01-03 19:18] LABS: Alcohol, Urine < 3.0 mg/dL (0-5); Amphetamine Screen, Urine NEGATIVE (NEGATIVE); Barbiturate Scree,Urine NEGATIVE (NEGATIVE); Benzodiazephine Screen, Urine NEGATIVE (NEGATIVE); Cannabinoid Screen, Urine POSITIVE (NEGATIVE); Cocaine Screen, Urine NEGATIVE (NEGATIVE); Opiate Scree,Urine NEGATIVE (NEGATIVE); Phencyclidine Screen, Urine NEGATIVE (NEGATIVE)
[2019-01-03 19:19] LABS: Calcium 8.7 mg/dL (8.5-10.1); Potassium 3.6 mmol/L (3.5-5.1)
[2019-01-03 19:23] LABS: BUN/Creatinine Ratio 12.1; Bilirubin, Total 0.4 mg/dL (0.2-1.0); Total Protein 7.7 g/dL (6.4-8.2)
[2019-01-03 19:24] LABS: Acetaminophen < 2.0 ug/mL (10-30)
[2019-01-03 19:35] LABS: Urine Bacteria NONE SEEN /hpf (None Seen); Urine Blood Negative /uL (Negative); Urine Hyaline Cast FEW /lpf (0 - 2); Urine Mucus FEW (None Seen); Urine Specific Gravity 1.025 (1.001-1.035); Urine WBC 21 /hpf (0 - 3)
[2019-01-03] MEDS ORDERED: AZITHROMYCIN 250 MG TAB PO ONE (20:30)
[2019-01-03] MEDS ORDERED: cefTRIAXone SODIUM 250 MG VL IM ONE (20:30)
[2019-01-03] MEDS ORDERED: LIDOCAINE 2% (LOCAL ANESTH.) PF 5ml SDV ONE (22:07)
[2019-01-04] MEDS ORDERED: LEVETIRACETAM 500 MG TAB PO ONE (01:30)
[2019-01-04 09:30] VITALS: BP 110/72
[2019-01-05 07:06] LABS: RPR Non Reactive (Non Reactive)
== END 2019-01-04 11:49 | disposition home or self-care (01) ==
LOC: ER 18:26
DX: F20.0 Paranoid schizophrenia (principal); A64 Unspecified sexually transmitted disease; F17.210 Nicotine dependence, cigarettes, uncomplicated; F12.90 Cannabis use, unspecified, uncomplicated
CPT/HCPCS: 36415; 70450; 80053; 80307; 80329; 81001; 85025; 86592; 87491; 87591; 94761; 96372; 99284; J0696; J2001

== ENCOUNTER 2019-01-24 09:53 | Emergency (ER) | payer MEDICAID ==
[~2019-01-24] VITALS: Ht 185.4 cm; Wt 81.6 kg
[2019-01-24 12:03] LABS: Basophils # (auto) 0 uL; Basophils % (auto) 0.4 % (0.0-2.0); Eosinophils # (auto) 0 uL; Eosinophils % (auto) 0.1 % (0.0-7.0); Hematocrit 46.6 % (41.0-53.0); Hemoglobin 15.7 g/dL (13.5-17.5); Lymphocytes % (auto) 10.2 % (10.0-50.0); Mean Corpuscular Hemoglobin 28.7 pg (28.0-32.0); Mean Corpuscular Hgb Conc. 33.7 g/dL (32.0-36.0); Mean Corpuscular Volume 85.2 fL (80.0-100.0); Monocytes # (auto) 0.4 uL; Monocytes % (auto) 4.7 % (0.0-12.0); Neutrophils % (auto) 84.6 % (37.0-80.0); Nucleated Red Blood Cells % 0.1 %; Platelet Count (auto) 176 10^3/uL (140-450); Red Blood Cells 5.47 10^6/uL (4.5-5.90); White Blood Cell 9.4 10^3/uL (4.4-10.8)
[2019-01-24 12:27] LABS: Albumin 4.5 g/dL (3.4-5.0); Calcium 9.4 mg/dL (8.5-10.1); Potassium 3.8 mmol/L (3.5-5.1)
[2019-01-24 12:30] LABS: Bilirubin, Total 0.7 mg/dL (0.2-1.0); Total Protein 8.1 g/dL (6.4-8.2)
[2019-01-24] MEDS ORDERED: LORazepam 2MG/ML-1ML VIAL ONE (13:04)
[2019-01-24 13:11] VITALS: BP 89/33
[2019-01-24] MEDS ORDERED: LORazepam 2MG/ML-1ML VIAL IM ONE (13:30)
[2019-01-24] MEDS ORDERED: SODIUM CHLORIDE 0.9% 1,000 ML IV ONE (13:30)
[2019-01-24] MEDS ORDERED: LEVETIRACETAM 500 MG TAB PO ONE (14:30)
[2019-01-24] MEDS ORDERED: LEVETIRACETAM INJ 1,000 MG in D5W 5% 100 ML IV ONE (15:00)
== END 2019-01-24 15:35 | disposition home or self-care (01) ==
LOC: EDBD 09:53 → ER 09:53
DX: R56.9 Unspecified convulsions (principal); F17.210 Nicotine dependence, cigarettes, uncomplicated; F12.10 Cannabis abuse, uncomplicated; Z91.14 Patient's other noncompliance with medication regimen
CPT/HCPCS: 36415; 70450; 80053; 82962; 85025; 96365; 96372; 99284; J1953; J2060; J7030; J7060

== ENCOUNTER 2019-03-01 00:18 | Emergency (ER) | payer MEDICAID ==
[~2019-03-01] VITALS: Ht 177.8 cm; Wt 81.6 kg
[~2019-03-01 00:18] MED LIST changes: +LEVE100020 PO; -LORazepam 2MG/ML-1ML VIAL ONE
[2019-03-01] MEDS ORDERED: SODIUM CHLORIDE 0.9% 1,000 ML IV ONE (01:15)
[2019-03-01 01:20] LABS: Basophils # (auto) 0 uL; Basophils % (auto) 0.6 % (0.0-2.0); Eosinophils # (auto) 0.3 uL; Hematocrit 39.4 % (41.0-53.0); Hemoglobin 13.4 g/dL (13.5-17.5); Lymphocytes # (auto) 2.3 uL; Lymphocytes % (auto) 31.4 % (10.0-50.0); Mean Corpuscular Hemoglobin 28.8 pg (28.0-32.0); Mean Corpuscular Hgb Conc. 34.2 g/dL (32.0-36.0); Mean Corpuscular Volume 84.4 fL (80.0-100.0); Monocytes # (auto) 0.9 uL; Monocytes % (auto) 11.5 % (0.0-12.0); Neutrophils # (auto) 3.9 uL; Neutrophils % (auto) 52.5 % (37.0-80.0); Nucleated Red Blood Cells % 0.2 %; Platelet Count (auto) 163 10^3/uL (140-450); Red Blood Cells 4.66 10^6/uL (4.5-5.90); Red Cell Distribution Width 13.4 % (11.8-14.3); White Blood Cell 7.5 10^3/uL (4.4-10.8)
[2019-03-01 01:38] LABS: Alanine Aminotransferase 21 U/L (16-61); Albumin 3.7 g/dL (3.4-5.0); Anion Gap 8 (5-15); Aspartate Aminotransferase 21 U/L (15-37); BUN/Creatinine Ratio 10.8; Blood Alcohol < 3.0 mg/dL (0-5); Blood Urea Nitrogen 11 mg/dL (7-18); Carbon Dioxide 27 mmol/L (21-32); Chloride 106 mmol/L (98-107); GFR African American 120 mL/min; GFR Non-African American 99 mL/min; Glucose 99 mg/dL (74-106); Potassium 3.9 mmol/L (3.5-5.1); Sodium 141 mmol/L (136-145)
[2019-03-01 01:41] LABS: Alkaline Phosphatase 91 U/L (45-117); Bilirubin, Total 0.3 mg/dL (0.2-1.0); Total Protein 7.1 g/dL (6.4-8.2)
[2019-03-01 02:23] VITALS: BP 111/55
[2019-03-01] MEDS ORDERED: OXcarbazepine 300 MG TAB PO ONE (03:00)
[2019-03-01 04:38] LABS: Alcohol, Urine < 3.0 mg/dL (0-5); Amphetamine Screen, Urine NEGATIVE (NEGATIVE); Barbiturate Scree,Urine NEGATIVE (NEGATIVE); Benzodiazephine Screen, Urine NEGATIVE (NEGATIVE); Cannabinoid Screen, Urine POSITIVE (NEGATIVE); Cocaine Screen, Urine NEGATIVE (NEGATIVE); Opiate Scree,Urine NEGATIVE (NEGATIVE); Phencyclidine Screen, Urine NEGATIVE (NEGATIVE)
== END 2019-03-01 04:03 | disposition home or self-care (01) ==
LOC: EDBD 00:18 → ER 00:22
DX: G40.909 Epilepsy, unspecified, not intractable, without status epilepticus (principal); R41.82 Altered mental status, unspecified; F17.210 Nicotine dependence, cigarettes, uncomplicated; F12.10 Cannabis abuse, uncomplicated; Z91.19 Patient's noncompliance with other medical treatment and regimen
CPT/HCPCS: 36415; 80053; 80307; 80320; 85025; 96360; 99283; J7030

== ENCOUNTER 2019-08-12 18:44 | Emergency (ER) | payer OTHER, MEDICAID ==
[~2019-08-12] VITALS: Ht 177.8 cm; Wt 54.4 kg
[2019-08-12] MEDS ORDERED: SODIUM CHLORIDE 0.9% 1,000 ML IVB ONE (19:29)
[2019-08-12] MEDS ORDERED: LEVETIRACETAM INJ 1,000 MG in D5W 5% 100 ML IV ONE (19:30)
[2019-08-12] MEDS ORDERED: LEVETIRACETAM 500 MG/5ML INJ IV ONE (21:00)
[2019-08-12 22:10] VITALS: BP 105/65
== END 2019-08-12 22:19 | disposition home or self-care (01) ==
LOC: EDUNIT# 18:44 → EDBD 18:44 → ER 18:49
DX: G40.909 Epilepsy, unspecified, not intractable, without status epilepticus (principal); F17.210 Nicotine dependence, cigarettes, uncomplicated; F12.10 Cannabis abuse, uncomplicated
CPT/HCPCS: 96365; 99283; J1953; J7060

== ENCOUNTER 2019-08-22 09:32 | Emergency (ER) | payer MEDICAID, OTHER ==
[~2019-08-22] VITALS: Ht 182.9 cm; Wt 72.6 kg
[2019-08-22 09:45] VITALS: BP 121/70
[2019-08-22 10:20] LABS: Basophils # (auto) 0 uL; Basophils % (auto) 0.9 % (0.0-2.0); Eosinophils # (auto) 0 uL; Hematocrit 42.8 % (41.0-53.0); Hemoglobin 14.4 g/dL (13.5-17.5); Lymphocytes # (auto) 1.5 uL; Lymphocytes % (auto) 38.3 % (10.0-50.0); Mean Corpuscular Hemoglobin 28.7 pg (28.0-32.0); Mean Corpuscular Hgb Conc. 33.7 g/dL (32.0-36.0); Mean Corpuscular Volume 85.2 fL (80.0-100.0); Monocytes # (auto) 0.3 uL; Monocytes % (auto) 7.5 % (0.0-12.0); Neutrophils # (auto) 2.1 uL; Neutrophils % (auto) 52.3 % (37.0-80.0); Nucleated Red Blood Cells % 0.1 %; Platelet Count (auto) 160 10^3/uL (140-450); Red Blood Cells 5.03 10^6/uL (4.5-5.90); Red Cell Distribution Width 13.8 % (11.8-14.3)
[2019-08-22 10:50] LABS: Potassium 4.3 mmol/L (3.5-5.1)
[2019-08-22 11:13] LABS: Albumin 3.8 g/dL (3.4-5.0); BUN/Creatinine Ratio 7.8; Bilirubin, Total 0.6 mg/dL (0.2-1.0); Calcium 8.9 mg/dL (8.5-10.1); Total Protein 6.5 g/dL (6.4-8.2)
[2019-08-22] MEDS ORDERED: SODIUM CHLORIDE 0.9% 1,000 ML IV ONE (11:55)
[2019-08-22] MEDS ORDERED: LEVETIRACETAM 500 MG TAB PO ONE (12:00)
[2019-08-22] MEDS ORDERED: LORazepam 0.5 MG TAB PO ONE (12:00)
== END 2019-08-22 12:43 | disposition home or self-care (01) ==
LOC: EDBD 09:32 → ER 09:36
DX: G40.909 Epilepsy, unspecified, not intractable, without status epilepticus (principal); E86.0 Dehydration; F17.210 Nicotine dependence, cigarettes, uncomplicated; F12.10 Cannabis abuse, uncomplicated
CPT/HCPCS: 36415; 70450; 80053; 84484; 85025; 93005; 99284; J7030

== ENCOUNTER 2022-05-04 12:20 | Emergency (ER) | payer MEDICAID ==
[~2022-05-04] VITALS: Ht 185.4 cm; Wt 68.5 kg
[2022-05-04 16:06] LABS: Basophils # (auto) 0.2 10 ^3/uL (0-0.2); Basophils % (auto) 2.5 % (0.0-2.0); Eosinophils # (auto) 0 10 ^3/uL (0-0.8); Eosinophils % (auto) 0.2 % (0.0-7.0); Hematocrit 43.4 % (41.0-53.0); Hemoglobin 14.9 g/dL (13.5-17.5); Lymphocytes # (auto) 1.1 10 ^3/uL (0.4-5.4); Lymphocytes % (auto) 15.2 % (10.0-50.0); Mean Corpuscular Hemoglobin 29.6 pg (28.0-32.0); Mean Corpuscular Hgb Conc. 34.5 g/dL (32.0-36.0); Monocytes # (auto) 0.6 10 ^3/uL (0-1.3); Monocytes % (auto) 7.9 % (0.0-12.0); Neutrophils # (auto) 5.4 10 ^3/uL (1.6-8.6); Neutrophils % (auto) 74.2 % (37.0-80.0); Red Blood Cells 5.04 10^6/uL (4.5-5.90); Red Cell Distribution Width 13.9 % (11.8-14.3); White Blood Cell 7.3 10^3/uL (4.4-10.8)
[2022-05-04 16:20] LABS: INR 1.16 (0.9-1.15); Partial Thromboplastin Time 29.7 sec (23.6-33.0)
[2022-05-04 16:28] LABS: Alanine Aminotransferase 18 U/L (16-61); Anion Gap 5 (5-15); Aspartate Aminotransferase 17 U/L (15-37); BUN/Creatinine Ratio 7.2; Blood Urea Nitrogen 8 mg/dL (7-18); Calcium 8.9 mg/dL (8.5-10.1); Carbon Dioxide 26 mmol/L (21-32); Chloride 111 mmol/L (98-107); GFR African American 106 mL/min; GFR Non-African American 87 mL/min; Glucose 114 mg/dL (74-106); Potassium 3.3 mmol/L (3.5-5.1); Sodium 142 mmol/L (136-145)
[2022-05-04 16:31] LABS: Alkaline Phosphatase 65 U/L (45-117); Total Protein 7.2 g/dL (6.4-8.2)
[2022-05-04] MEDS ORDERED: TETANUS-DIPTH-ACEL PERTUSSIS 0.5ML SYR Tdap IM ONE (16:45)
[2022-05-04 19:30] VITALS: BP 122/80
== END 2022-05-04 20:20 | disposition left against medical advice (07) ==
LOC: ER 12:20
DX: T23.202A Burn of second degree of left hand, unspecified site, initial encounter (principal); T23.201A Burn of second degree of right hand, unspecified site, initial encounter; F17.210 Nicotine dependence, cigarettes, uncomplicated; Z79.899 Other long term (current) drug therapy; X10.0XXA Contact with hot drinks, initial encounter; Y93.89 Activity, other specified; Y92.89 Other specified places as the place of occurrence of the external cause; Y99.8 Other external cause status
CPT/HCPCS: 36415; 70450; 80053; 84484; 85025; 85610; 85730; 90471; 90715; 93005

== ENCOUNTER 2022-12-22 19:06 | Emergency (ER) | payer MEDICAID ==
[~2022-12-22] VITALS: Ht 180.3 cm; Wt 60.0 kg
[2022-12-22 19:47] VITALS: BP 155/95
[2022-12-22 19:59] LABS: Urine Bacteria NONE SEEN /hpf (None Seen); Urine Blood Negative /uL (Negative); Urine Hyaline Cast FEW /lpf (0 - 2); Urine Specific Gravity 1.012 (1.001-1.035); Urine WBC 3 /hpf (0 - 3)
[2022-12-22 20:49] LABS: Barbiturate Scree,Urine NEGATIVE (NEGATIVE); Benzodiazephine Screen, Urine NEGATIVE (NEGATIVE); Cannabinoid Screen, Urine POSITIVE (NEGATIVE); Cocaine Screen, Urine NEGATIVE (NEGATIVE)
[2022-12-22 20:56] LABS: Amphetamine Screen, Urine NEGATIVE (NEGATIVE); Opiate Scree,Urine NEGATIVE (NEGATIVE); Phencyclidine Screen, Urine NEGATIVE (NEGATIVE)
[2022-12-22 21:20] LABS: Basophils # (auto) 0.2 10 ^3/uL (0-0.2); Basophils % (auto) 1.2 % (0.0-2.0); Calcium 9.3 mg/dL (8.5-10.1); Eosinophils # (auto) 0.5 10 ^3/uL (0-0.8); Eosinophils % (auto) 2.7 % (0.0-7.0); Hemoglobin 13.4 g/dL (13.5-17.5); Lymphocytes # (auto) 2.6 10 ^3/uL (0.4-5.4); Lymphocytes % (auto) 13.1 % (10.0-50.0); Mean Corpuscular Hemoglobin 28.2 pg (28.0-32.0); Mean Corpuscular Hgb Conc. 32.6 g/dL (32.0-36.0); Mean Corpuscular Volume 86.4 fL (80.0-100.0); Monocytes # (auto) 2.4 10 ^3/uL (0-1.3); Monocytes % (auto) 12.2 % (0.0-12.0); Neutrophils # (auto) 13.9 10 ^3/uL (1.6-8.6); Neutrophils % (auto) 70.8 % (37.0-80.0); Potassium 3.3 mmol/L (3.5-5.1); Red Blood Cells 4.75 10^6/uL (4.5-5.90); Red Cell Distribution Width 13.9 % (11.8-14.3); White Blood Cell 19.6 10^3/uL (4.4-10.8)
[2022-12-22 21:23] LABS: BUN/Creatinine Ratio 14.2
== END 2022-12-22 22:55 | disposition left against medical advice (07) ==
LOC: EDBD 19:06 → ER 19:06
DX: R45.851 Suicidal ideations (principal); R94.31 Abnormal electrocardiogram [ECG] [EKG]; Z53.21 Procedure and treatment not carried out due to patient leaving prior to being seen by health care provider
CPT/HCPCS: 36415; 71046; 80048; 80307; 80320; 81001; 85025; 93005